=== PATIENT | female | born 1960 | race Caucasian/White ===

== ENCOUNTER 2020-10-22 11:36 | Day surgery (SDC) | payer BC, OTHER ==
--- OUTSIDE RECORDS SUMMARY | 2020-10-15 10:37 | XMSREPORT | Referral Summary ---
:1960 Author Organization [facility] and [facility] s Address [facility] [place] [address] Care Team Providers Name Role Phone LOYDA Aguilera Attributed Provider LOYDA Aguilera Primary Care Provider Reason for Referral Transitions of Care (Routine) Status Reason Specialty Diagnoses / Referred By Referred To Procedures Contact Contact New Request Patient Diagnoses Iron deficiency anemia, unspecified iron deficiency anemia type [facility]ravanthi [facility], [facility] Preference LOYDA [place], [address] [place], [place] [address] [address] [place], [place] Phone: [phone] Phone: Encounter Details Date Type Department Care Team Description 10/13/[address] [facility] Sravanthi Aguilera PA [address] [place] [address] [place] [address] [phone] Allergies Active Allergy Reactions Severity Noted Date Comments Sulfa Drugs Rash 05/14/2012 documented as of this encounter (statuses as of 10/13/2020) Medications Medication Sig Dispensed Refills Start Date End Date Status MULTIPLE VITAMIN PO Take 1 tablet by 0 Active mouth 1 tablet daily ibuprofen Take 200-600 mg by 0 A ctive (ADVIL;MOTRIN-IB) 200 mouth 3 times a mg tablet day as needed for moderate pain omeprazole (PRILOSEC) TAKE ONE CAPSULE 90 capsule 4 01/10/2020 Active 20 mg BY MOUTH EVERY DAY capsuleIndications: IN THE MORNING GERD (gastroesophageal reflux disease) albuterol HFA Inhale 1-2 puffs 1 Inhaler 2 05/19/2020 Active (PROVENTIL,PROAIR,MIKAELA orally every 4 to TOLIN) 108 (90 Base) 6 hours as needed MCG/ACT for shortness of inhalerIndications: breath or cough Bronchitis Shake well before using. fluticasone (FLONASE) [place] 1 spray into 15.8 mL 1 0 Active 50 mcg/spray nasal each nostril 2 sprayIndications: times a day Dysfunction of right eustachian tube Additional Information Patient not taking. Reported on 10/06/2020 9:01 AM busPIRone (BUSPAR) 30 mg TAKE 1 TABLET(30 MG) 90 tablet 1 08/05 Active tabletIndications: Anxiety BY MOUTH EVERY DAY atorvaSTATin (LIPITOR) 10 mg TAKE 1 TABLET(10 MG) 90 tablet 1 09/29/2020 Active tabletIndications: Mixed BY MOUTH EVERY DAY hyperlipidemia hydroCHLOROthiazide 25 mg TAKE 1 TABLET BY 90 tablet 0 021 Active tabletIndications: Essential MOUTH EVERY DAY hypertension venlafaxine (EFFEXOR) 100 mg TAKE 1 TABLET BY 90 tablet 1 09/05 Active tabletIndications: Depression, MOUTH 1 TIME A DAY unspecified depression type, ALONG WITH 75MG FOR A Anxiety TOTAL OF 175MG DAILY venlafaxine (EFFEXOR XR) 75 mg TAKE ONE CAPSULE BY 90 capsule 1 09/29/2020 Active extended release MOUTH 1 TIME A DAY. capsuleIndications: Depression, ALONG WITH 100 MG FOR unspecified depression type, A TOTAL OF 175MG Anxiety DAILY buPROPion (WELLBUTRIN XL) 150 TAKE 1 TABLET BY 90 tablet 1 Active mg tablet (24 hr)Indications: MOUTH DAILY ALONG Anxiety, Depression, WITH 300MG TABLET FOR unspecified depression type TOTAL OF 450MG DAILY buPROPion (WELLBUTRIN XL) 300 TAKE 1 TABLET BY 90 tablet 1 Active mg tablet (24 hr)Indications: MOUTH 1 TIME PER DAY Anxiety, Depression, ALONG WITH 150MG FOR unspecified depression type A TOTAL OF 450MG DAILY potassium chloride (KLOR-CON Take 1 tablet (10 90 tablet 3 02/ 10/2020 Active M10) 10 MEQ CR mEq) by mouth 2 times tabletIndications: Hypokalemia a day For 5 days and then daily documented as of this encounter (statuses as of 10/13/2020) Active Problems Problem Noted Date GERD (gastroesophageal reflux disease) 11/06/2018 Mixed hyperlipidemia 11/06/2018 Tobacco use 11/06/2018 Overweight (BMI 25.0-29.9) 11/06/2018 Chronic left-sided low back pain without sciatica 08/04 HLA B27 (HLA B27 positive) 08/22/2016 Hypertension Depression Anxiety documented as of this encounter (statuses as of 10/13/2020) Immunizations Name Administration Dates Next Due MMR 04/01/2004 TD(adult)adsorbed 04/01/2004 TD,not adsorbed 04/01/2004 TDAP 07/03/2008 Td(adult)preservative free 11/06/2018, 04/01/2004 Tuberculin PPD 03/02/2016 documented as of this encounter Social History Tobacco Use Types Packs/Day Years Used Date Current Every Day Smoker Cigarettes 0.5 30 Smokeless Tobacco: Never Used Alcohol Use Drinks/Week oz/Week Comments No Physical Activity Answer Date Recorded On average, how many days per week do you engage in moderate to 0 days 08/24/2020 strenuous exercise (like walking fast, running, jogging, dancing, swimming, biking, or other activities that cause a light or heavy sweat)? On average, how many minutes do you engage in exercise at th is 0 min 08/24/2020 level? Food Insecurity Answer Date Recorded Within the past 12 months, you worried that your food would Never true 10/06/2020 run out before you got money to buy more. Within the past 12 months, the food you bought just didn't N ever true 10/06/2020 last and you didn't have money to get more. Sex Assigned at Date Recorded Not on file documented as of this encounter Functional Status Functional Status Response Date of Assessment Do you have difficulty with walking, balance, climbing No 11/06/2018 stairs, or had a fall in the last 3 months? documented as of this encounter Plan of Treatment Name Type Priority Associated Diagnoses Order S [facility] CLINIC REFERRAL Referral Routine Iron deficiency anemia, O rdered: 10/13/2020 ENDOSCOPY NON ONE CHART unspecified iron deficiency anemia type documented as of this encounter Visit Diagnoses Diagnosis Gastroesophageal reflux disease, unspeci fied whether esophagitis present - Primary Iron deficiency anemia, unspecified iron deficiency anemia type documented in this encounter
[~2020-10-22 11:36] MED LIST: Midazolam 1 MG/ML 2 ML SDV ONE; Propofol 200 MG/20 ML SDV ONE
[2020-10-22] MEDS ORDERED: Lactated Ringers 1,000 ML IV SCH (12:00)
[2020-10-22] MEDS ORDERED: Sodium Chloride 0.9% 10 ML Syringe FLUSH PRN (12:00)
[2020-10-22] MEDS ORDERED: Propofol 200 MG/20 ML SDV ONE ×2 (12:52→13:05)
[2020-10-22] MEDS ORDERED: Midazolam 1 MG/ML 2 ML SDV ONE (13:05)
[2020-10-22] MEDS ORDERED: Lidocaine 2% 5 ML SDV ONE (13:05)
--- NOTE | 2020-10-22 13:43 | PCM.OPNOTE ---
- General Post-Op/Procedure Note Date of Surgery/Procedure: 10/22/20 Operative Procedure(s): EGD with BX. Colonoscopy with polypectomy Findings: Gastritis Desc polyp Sig tics Pre Op Diagnosis: Fe Def Anemia Post-Op Diagnosis: Same Anesthesia Technique: MAC Primary Surgeon: Ze Cisse Anesthesia Provider: Kaur Landeros EBL in mLs: 0 Complications: None Condition: Good
--- NOTE | 2020-10-22 14:48 | OR ---
Date of Procedure: 10/22/2020 PREOPERATIVE DIAGNOSIS: Iron-deficiency anemia. POSTOPERATIVE DIAGNOSES: 1. Chronic gastritis. 2. Sigmoid diverticulosis. 3. Descending colon polyp. PROCEDURES: 1. EGD with biopsy. 2. Colonoscopy with polypectomy. ANESTHESIA: IV sedation. PROCEDURE IN DETAIL: The patient was brought to the procedure room where she was placed on her left side and IV sedation administered. Anesthetic gargle had been given and the oral bite block placed. Upper endoscope was advanced into the esophagus under direct vision without difficulty. Scope was advanced to the second portion of the duodenum. Duodenum and pylorus were normal. Antrum and body of the stomach have evidence of chronic gastritis with some linear erosions. There was no active bleeding. There was no ulcers present. Retroflexion reveals a normal-appearing fundus. Squamocolumnar junction is regular, but the lower esophageal sphincter is fairly loose. The distal esophageal mucosa looks normal and I did not see any evidence of reflux esophagitis. I did take biopsies from the antrum and body of the stomach for pathology review. Air was removed from the stomach, and the scope withdrawn through the remaining esophagus, which appears normal. Patient tolerated this portion of the procedure well. Next, colonoscopy was performed after digital rectal exam was done, which was normal. Colonoscope was inserted and advanced to the level of the cecum without difficulty. Cecal position was confirmed by identifying the appendiceal lumen and ileocecal valve. Prep was good and surfaces were well visualized. Upon withdrawing the scope, the ascending and transverse colon was normal. In the mid descending colon, there was a 6-mm sessile polyp removed with the hot biopsy forceps and sent for pathology review. Sigmoid colon has multiple large diverticula present. Rectum was normal and retroflexion was normal. Air was removed. The scope withdrawn. Patient tolerated the procedure well and returned to recovery in stable condition. RECOMMENDATION: I will have the patient follow up with LOYDA August, next week for review of pathology report. I suspect she will need an acid medication therapy for her stomach, and if H. pylori is present, this should be treated. If polyp is adenomatous, she should undergo a repeat colonoscopy in 5 years. If the polyp is hyperplastic, she can wait for 10 years until her next colon screening. DADA GOLD MD /[id number]
== END 2020-10-22 14:50 | disposition home or self-care (01) ==
LOC: LL.SDS 11:36
PROVIDERS: ATTEND Surgery
DX: D50.9 Iron deficiency anemia, unspecified (principal); K29.50 Unspecified chronic gastritis without bleeding; K57.30 Diverticulosis of large intestine without perforation or abscess without bleeding; Z01.812 Encounter for preprocedural laboratory examination; Z20.822 Contact with and (suspected) exposure to COVID-19; E87.6 Hypokalemia; R32 Unspecified urinary incontinence; Z79.899 Other long term (current) drug therapy; Z88.2 Allergy status to sulfonamides; I10 Essential (primary) hypertension; E66.3 Overweight; Z68.25 Body mass index [BMI] 25.0-25.9, adult
CPT/HCPCS: 00813; 43239; 45384; 87635; J2250; J2704; J7120; U0002

== ENCOUNTER 2021-01-01 00:15 | Observation (INO) | payer BC ==
[2021-01-01] MEDS ORDERED: Sodium Chloride 0.9% 10 ML Syringe FLUSH PRN ×3 (00:47→02:11)
[2021-01-01] MEDS ORDERED: Famotidine 20 MG/2 ML SDV IVPUSH ONE (00:47)
--- NOTE | 2021-01-01 00:47 | EDM.PDOC ---
ED HPI GENERAL MEDICAL PROBLEM - General Chief Complaint: Cardiovascular Problem Stated Complaint: DIZZY, LIGHTHEADED, HYPERTENSION Time Seen by Provider: 01/01/21 00:35 Source of Information: Reports: Patient, Old Records ([facility] EMR. No paper hospital chart available.) History Limitations: Reports: No Limitations - History of Present Illness INITIAL COMMENTS - FREE TEXT/NARRATIVE: The patient was brought to the emergency room via transport vehicle from [facility] for evaluation of intermittent nonspecific dizziness, possible mild heart flutter, chills, and nausea with symptoms started at about 9 PM on 12/30. She did have similar symptoms at about 7 PM this evening prior to going to work with return symptoms shortly prior to arrival. In addition, the patient had 8/10 nonspecific epigastric discomfort with no radiation and normal bowel movement at about 11 PM this evening. No treatment prior to arrival with symptoms completely resolved at time of my exam. The patient denies any chest pain/pressure, orthostasis, orthopnea, diaphoresis, paresthesias, recent decreased exercise tolerance, or any other anginal-type symptoms. No recent history of other abdominal pain, emesis, diarrhea, melena, gross hematochezia, or any food intolerance, including fatty foods, etc.. She denies any gross hematuria, colic, or the UTI symptoms. The patient also denies any recent fever, cough, wheezing, dyspnea, etc. although temperature not measured. Onset: Sudden Onset Date: 12/30/20 Onset Time: 21:00 - Related Data Allergies Allergy/AdvReac Type Severity Reaction Status Date / Time Sulfa (Sulfonamide Allergy Rash Verified 01/01/21 00:24 Antibiotics) Home Meds: Home Meds Albuterol Sulfate [Albuterol Sulfate HFA] 1 - 2 puff INH Q4HR PRN 10/21/20 [History] Fluticasone Propionate [Flonase] 1 spray NASBOTH BID PRN 10/21/20 [History] Ibuprofen [Advil] 200 - 600 mg PO TID PRN 10/21/20 [History] Multivitamin with Minerals [Multiple Vitamin] 1 tab PO DAILY 10/21/20 [History] Omeprazole 1 cap PO DAILY 10/21/20 [History] Venlafaxine HCl 1 tab PO DAILY 10/21/20 [History] Venlafaxine [Effexor XR] 75 mg PO DAILY 10/21/20 [History] atorvaSTATin [Lipitor] 1 tab PO DAILY 10/21/20 [History] buPROPion HCL [Wellbutrin Xl] 1 tab PO DAILY 10/21/20 [History] buPROPion HCL [Wellbutrin Xl] 1 tab PO DAILY 10/21/20 [History] busPIRone HCl [busPIRone] 1 tab PO DAILY 10/21/20 [History] hydroCHLOROthiazide [Hydrochlorothiazide] 0.5 tab PO DAILY 10/21/20 [History] Potassium Chloride [Klor-Con M10] 10 meq PO DAILY 10/22/20 [History] Past Medical History HEENT History: Reports: Allergic Rhinitis, Cataract, Impaired Vision, Other (See Below). Denies: Glaucoma, Hard of Hearing, Macular Degeneration, Otitis Media, Retinal Detachment Other HEENT History: Patient wears reading glasses. Retinal thinning. Cardiovascular History: Reports: CAD, High Cholesterol, Hypertension. Denies: Afib, Aneurysm, Arrhythmia, Blood Clots/VTE/DVT, Cardiomyopathy, Heart Failure, Heart Murmur, OK, PVD, Syncope Other Cardiovascular History: Coronary artery calcifications by CT scan on 10/20/2020. Respiratory History: Reports: COPD, Intubation, Previous, Other (See Below). Denies: Asthma, Bronchitis, Recurrent, Intubation, Difficult, PE, Pneumonia, Recurrent, Pneumothorax, Sleep Apnea, TB Other Respiratory History: 3 mm benign right middle lobe pulmonary nodule. Gastrointestinal History: Reports: Colon Polyp, Diverticulosis, Gastritis, GERD, Other (See Below). Denies: Celiac Disease, Cholelithiasis, Chronic Constipation, Chronic Diarrhea, Fatty Liver, Fecal Incontinence, GI Bleed, Hepatitis, Inflammatory Bowel Disease, Irritable Bowel Syndrome, Jaundice, Pancreatitis, PUD Other Gastrointestinal History: 6 mm colonic polyp in the mid descending colon with normal pathological report and mild to moderate sigmoid diverticulosis by colonoscopy in 2020 as below. Genitourinary History: Reports: Urinary Incontinence. Denies: Acute Renal Failure, Chronic Renal Insuffiency, Renal Calculus, STD, UTI, Recurrent VETERINARY TOXICOLOGIST History: Reports: . Denies: Dysfunctional Uterine Bleeding, Endometriosis, Fibroids, Spontaneous : 4 Para: 4 LMP (Approximate): Other (See Below) Other VETERINARY TOXICOLOGIST History: Menopause at about age 52. Full term without complications during pregnancies or deliveries. Musculoskeletal History: Reports: Arthritis, Back Pain, Chronic, Osteoarthritis, Other (See Below). Denies: Amputation, Fracture, Gout, RA, SLE Other Musculoskeletal History: Moderate scoliosis. Neurological History: Reports: Cerebral Aneurysms, Other (See Below). Denies: Concussion, CVA, Headaches, Chronic, Head Trauma, Migraines, MS, Neuropathy, Diabetic, Neuropathy, Peripheral, Parkinson's, Seizure, TIA, Vertigo Other Neuro History: Cerebral aneurysms requiring surgeries as below in 2010. Psychiatric History: Reports: Addiction, Anxiety, Depression, Psych Hospitalization(s), Other (See Below). Denies: Abuse, Victim of, ADD, ADHD, Dementia, PTSD, Suicide Attempt, Suicidal Ideation Other Psychiatric History: Alcohol abuse with inpatient treatment and no alcohol use since 06/28/1999. Initial moderate alcohol intake starting at age 20. Endocrine/Metabolic History: Reports: Hypokalemia, Obesity/BMI 30+. Denies: Diabetes, Gestational, Diabetes, Type I, Diabetes, Type II, Diabetes Mellitus, Type 3c, Hypothyroidism, IDDM Hematologic History: Reports: Anemia, Iron Deficiency. Denies: Blood Transfusion(s) Immunologic History: Reports: None. Denies: AIDS, HIV, SLE Oncologic (Cancer) History: Reports: None. Denies: Basal Cell Carcinoma, Breast, Cervix, Colon, Esophageal, Hodgkin's Lymphoma, Leukemia, Lymphoma, Malignant Melanoma, Non-Hodgkin's Lymphoma, Ovarian, Squamous Cell Carcinoma, Uterine Dermatologic History: Reports: None. Denies: Eczema, Psoriasis - Infectious Disease History Infectious Disease History: Reports: Chicken Pox. Denies: C-Difficile, Helicobacter Pylori, Measles, Meningitis, Mononucleosis, MRSA, Mumps, Novel Coronavirus, Pertussis (Whooping Cough), Rheumatic Fever, Rubella, Scarlet Fever, Shingles, TB, VRE - Past Surgical History Head Surgeries/Procedures: Reports: Shunt, Other (See Below) Other Head Surgeries/Procedures: Initial coil/shunt surgery on 12/29/2010 complicated by postoperative infection with core removal and replacement couple weeks thereafter. HEENT Surgical History: Reports: Cataract Surgery, Oral Surgery, Other (See Below). Denies: Adenoidectomy, Eye Surgery, Laser Surgery, LASIK, Myringotomy w Tube(s), Naso-Sinus Surgery, Tonsillectomy Other HEENT Surgeries/Procedures: Bilateral cataract surgery in 2014. Complete teeth extraction with patient having complete dentures uppers and lowers. Cardiovascular Surgical History: Reports: None. Denies: Varicose, Vascular Surgery Respiratory Surgical History: Reports: None. Denies: Thoracentesis GI Surgical History: Reports: Colonoscopy, EGD, Polypectomy, Other (See Below). Denies: Appendectomy, Cholecystectomy, Hernia, Abdominal, Hernia, Inguinal, Hernia Repair/Other Other GI Surgeries/Procedures: EGD and colonoscopy on 10/22/2020 with negative H pylori biopsy evaluation. Possible previous colonoscopy in 2017. Female Surgical History: Reports: Tubal Ligation, Other (See Below). Denies: Breast Biopsy, Section, D&C, Hysterectomy, Salpingo-Oophorectomy Other Female Surgeries/Procedures: Bilateral tubal ligation at age 37. Endocrine Surgical History: Reports: None. Denies: Thyroid Biopsy Neurological Surgical History: Reports: None. Denies: C-Spine, Discectomy, Laminectomy, Lumbar Spine, Sacral Spine, Scoliosis, Spinal Fusion, Thoracic Spine, Vertebroplasty Musculoskeletal Surgical History: Reports: None. Denies: Arthroscopic Procedure, Carpal Tunnel, Ganglion Cyst, Joint Replacement, ORIF, Shoulder Surgery Oncologic Surgical History: Reports: None Dermatological Surgical History: Reports: None - Past Imaging History Past Imaging History: Reports: CAT Scan (CT of the chest on 10/20/2020.), Mammogram (Last on 10/20/2020.) Social & Family History - Family History HEENT: Reports: Glaucoma. Denies: Macular Degeneration, Retinal Detachment, Other (See Below) Other HEENT Family History: Father with glaucoma. Cardiac: Reports: CAD, Hypertension, OK, Other (See Below). Denies: Afib, Aneurysm, Arrhythmia, Blood Clots/VTE/DVT, Bypass, Heart Failure, Heart Murmur, High Cholesterol, Pacemaker, PVD/COD, Stent, Syncope Other Cardiac Family History: Father with fatal OK in his 70s with no procedures performed. Parents with hypertension. Respiratory: Reports: Asthma, Sleep Apnea, Other (See Below). Denies: COPD, PE, Pneumothorax Other Respiratory Family Hisory: Sleep apnea and brothers x2 and sister. Asthma in brother and sister. GI: Reports: None. Denies: Celiac Disease, Cholelithiasis, Colon Polyps, GERD, GI bleed, Inflammatory Bowel Disease, Irritable Bowel Syndrome : Reports: None. Denies: Renal Calculus, Renal Disease/Insufficiency OBGYN: Reports: None. Denies: Endometriosis, Recurrent Spontaneous Musculoskeletal: Reports: Arthritis, Osteoarthritis, Osteoporosis, RA, Other (See Below). Denies: Gout, SLE Other Musculoskeletal Family History: Maternal grandmother with rheumatoid arthritis. Neurological: Reports: Cerebral Aneurysms, Other (See Below). Denies: Alzheimers Disease, CVA, Dementia, Migraines, MS, Parkinson's, Seizure, TIA Other Neurological Family History: Daughter with small cerebral aneurysm. Psychiatric: Reports: Anxiety, Depression, Other (See Below). Denies: Abuse, Victim of, ADD, ADHD, Psych Hospitalization(s), PTSD, Suicide Attempt Other Psychiatric Family History: Daughter with anxiety depression disorder. Endocrine/Metabolic: Reports: Diabetes, type II, Other (See Below). Denies: Diabetes, Type I, Diabetes Mellitus, Type 3c, Hypothyroidism, IDDM Other Endocrine/Metabolic Family History: Mother with IDDM. Brother with AODM. Hematologic: Reports: None. Denies: Anemia, SLE Immunologic: Reports: None. Denies: AIDS, HIV, SLE Dermatologic: Reports: None. Denies: Eczema, Psoriasis Oncologic: Reports: Breast, Other (See Below). Denies: Cervix, Colon, Hodgkin's Lymphoma, Leukemia, Lymphoma, Metastatic, Non-Hodgkin's Lymphoma, Ovarian, Skin, Uterine Other Oncologic Family History: Paternal aunt with fatal breast cancer in her 60s. - Tobacco Use Tobacco Use Status *Q: Current Every Day Tobacco User Tobacco Use Within Last Twelve Months: Cigarettes Years of Tobacco use: 41 Packs/Tins Daily: 0.8 Packs/Tins Daily Comment: Started smoking at age 19 with average use of 0.75-1 pack/day. Used Tobacco, but Quit: No Smoking Cessation Information Provided To Patient: Yes Second Hand Smoke Exposure: Yes Source of Second Hand Smoke Exposure: Sister and [id number]. Second Hand Smoke Education Provided: Yes - Caffeine Use Caffeine Use: Reports: Coffee (3 cups/day), Soda (2 sodas per day). Denies: Energy Drinks, Tea - Alcohol Use Alcohol Use History: Yes Days Per Week of Alcohol Use: 0 Number of Drinks Per Day Comment: Alcohol abuse as above. Alcohol Use in Last Twelve Months: No - Recreational Drug Use Recreational Drug Use: No Drug Use in Last 12 Months: No Recreational Drug Type: Denies: Amphetamines (Speed), Cocaine, Heroin, Inhalants (Glues, Solvents, Aerosols), LSD (Acid), Marijuana/Hashish, Methamphetamine, Morphine, Oxycodone - Living Situation & Occupation Living situation: Reports: (Second marriage in 2001 with 2 children from that marriage. from first with 2 children from that marriage.) Occupation: Employed ([employer]) ED ROS GENERAL - Review of Systems Review Of Systems: Comprehensive ROS is negative, except as noted in HPI. ED EXAM, GENERAL - Physical Exam Exam: See Below Exam Limited By: No Limitations General Appearance: Alert, WD/WN, No Apparent Distress, Anxious (Mild to moderate) Eye Exam: Bilateral Eye: EOMI, Normal Fundi, Normal Inspection (No vertigo or nystagmus), PERRL Ears: Normal External Exam, Normal Canal, Hearing Grossly Normal, Normal TMs Nose: Normal Inspection, Normal Mucosa, No Blood Throat/Mouth: Normal Inspection, Normal Lips, Normal Gums, Normal Oropharynx, Normal Voice, No Airway Compromise. No: Normal Teeth (Completely absent dentition with patient only wearing her upper dentures.), Dysphagia, Perioral Cyanosis Head: Atraumatic, Normocephalic. No: Facial Swelling, Facial Tenderness, Sinus Tenderness Neck: Normal Inspection, Supple, Non-Tender, Full Range of Motion. No: Carotid Bruit, Lymphadenopathy (L), Lymphadenopathy (R), Thyromegaly Respiratory/Chest: No Respiratory Distress, Lungs Clear, Normal Breath Sounds, No Accessory Muscle Use, Chest Non-Tender. No: Pleural Rub, Retractions Cardiovascular: Normal Peripheral Pulses, Regular Rate, Rhythm, No Edema, No Gallop, No JVD, No Murmur, No Rub. No: Gallop/S3, Gallop/S4, Friction Rub Peripheral Pulses: 2+: Radial (L), Radial (R), Dorsalis Pedis (L), Dorsalis Pedis (R) GI/Abdominal: Normal Bowel Sounds, Soft, Non-Tender, No Organomegaly, No Distention, No Abnormal Bruit, No Mass. No: Guarding (Female) Exam: Deferred Rectal (Female) Exam: Deferred Back Exam: Full Range of Motion, Other (Moderate scoliosis). No: CVA Tenderness (L), CVA Tenderness (R), Muscle Spasm, Paraspinal Tenderness, Vertebral Tenderness Extremities: Normal Inspection, Normal Range of Motion, Non-Tender, No Pedal Edema, Normal Capillary Refill. No: Jeanie's Sign Neurological: Alert, Oriented, CN II-XII Intact, Normal Cognition, Normal Gait, Normal Reflexes (Negative Babinski's, finger to nose, and pronator rotation tests. No evidence of facial paresis, tongue deviation, orthostasis, etc.. Excellent reverse thought processes.), No Motor/Sensory Deficits Psychiatric: Anxious (Mild to moderate), Depressed Mood (Borderline) Skin Exam: Warm, Dry, Intact, Normal Color, No Rash. No: Diaphoretic, Wound/Incision Lymphatic: No Adenopathy #1 Interpretation EKG Date: 01/01/21 Time: 00:28 Rhythm: NSR Rate (Beats/Min): 80 [place]: Normal (Neutral) P-Wave: Present QRS: Wide (0.10 seconds representing repolarization changes.) ST-T: Normal (With nonspecific ST changes) QT: Normal NC/PQ Interval: 0.16 seconds with poor R wave progression anterior leads. Comparison: NA - No Prior EKG EKG Interpretation Comments: No acute ischemic changes Course - Vital Signs Last Recorded V/S: Last Vital Signs Temp 36.3 C 01/01/21 01:14 Pulse 84 01/01/21 01:14 Resp 16 01/01/21 01:14 BP 148/84 H 01/01/21 01:14 Pulse Ox 98 01/01/21 01:14 Vital Signs - 24 hr 01/01/21 01/01/21 01/01/21 00:19 00:20 00:30 Temperature [ 36.3 C 36.3 C Temporal] Pulse, 99 100 85 Peripheral [ Apical] Respiratory 15 13 15 Rate Blood Pressure 160/91 H 160/91 H 156/82 H [Right Upper Arm] O2 Sat by Pulse 97 98 95 Oximetry 01/01/21 01/01/21 00:45 01:14 Temperature [ 36.3 C Temporal] Pulse, 91 84 Peripheral [ Apical] Respiratory 15 16 Rate Blood Pressure 150/88 H 148/84 H [Right Upper Arm] O2 Sat by Pulse 95 98 Oximetry - Orders/Labs/Meds Orders: Active Orders 24 hr Category Date Time Status Cardiac Monitoring [RC] . DIRECTED Care 01/01/21 00:48 Active EKG Documentation Completion [RC] ASDIRECTED Care 01/01/21 00:28 Active Oxygen Therapy, ED [RC] PRN Care 01/01/21 00:48 Active Peripheral IV Care [RC] . DIRECTED Care 01/01/21 00:48 Active Pulse Oximetry [RC] CONTINUOUS Care 01/01/21 00:48 Active Up With Assistance [RC] PFP Care 01/01/21 00:48 Active Vital Signs [RC] PFP Care 01/01/21 00:48 Active Nothing per Oral Now Diet [DIET] Diet 01/01/21 Breakfast Active Chest 1V Frontal [CR] Stat Exams 01/01/21 00:48 Ordered CORONAVIRUS COVID-19 PAOLA [MOLEC] Stat Lab 01/01/21 00:51 Ordered Potassium Chloride Riders [KCl in Water 10 MEQ/50 ML] Med 01/01/21 01:33 Ordered 10 meq Premix Bag 1 bag IV ONETIME Sodium Chloride 0.9% [Saline Flush] Med 01/01/21 00:47 Active 10 ml FLUSH ASDIRECTED PRN Isolation [COMM] Routine Oth 01/01/21 00:51 Active Obtain Past Medical Record [OM.PC] Urgent Oth 01/01/21 00:48 Active Peripheral IV Insertion Adult [OM.PC] Stat Oth 01/01/21 00:48 Ordered Resuscitation Status Stat Resus Stat 01/01/21 00:47 Ordered EKG 12 Lead [EK] Stat Ther 01/01/21 00:28 Ordered Medication Orders Potassium Chloride 10 meq/ (Premix) 50 mls @ 50 mls/hr IV ONETIME ONE Stop: 01/01/21 02:32 Sodium Chloride (Sodium Chloride 0.9% 10 Ml Syringe) 10 ml FLUSH ASDIRECTED PRN PRN Reason: Keep Vein Open Last Admin: 01/01/21 00:56 Dose: 10 ml Documented by: [id number] Sodium Chloride (Sodium Chloride 0.9% 10 Ml Syringe) 10 ml FLUSH ASDIRECTED PRN PRN Reason: Keep Vein Open Labs: Laboratory Tests 01/01/21 01/01/21 01/01/21 Range/Units 00:45 00:45 00:45 WBC 11.9 H (4.0-10.2) K/uL RBC 4.14 (3.77-5.09) M/uL Hgb 12.7 (11.7-15.5) g/dL Hct 36.9 (34.0-46.0) % MCV 89.1 (84.0-98.0) fL MCH 30.7 (28.2-33.3) pg MCHC 34.4 (31.7-36.0) g/dL RDW 12.9 (11.2-14.1) % Plt Count 396 H (150-350) K/uL Neut % (Auto) 74.8 (45.0-80.0) % Lymph % (Auto) 15.9 (10.0-50.0) % Ray % (Auto) 7.5 (2.0-14.0) % Eos % (Auto) 1.2 (0.0-5.0) % Baso % (Auto) 0.6 (0.0-2.0) % Neut # (Auto) 8.86 H (1.40-7.00) K/uL Lymph # (Auto) 1.89 (0.50-3.50) K/uL Ray # (Auto) 0.89 (0.00-1.00) K/uL Eos # (Auto) 0.14 (0.00-0.50) K/uL Baso # (Auto) 0.07 (0.00-0.20) K/uL PT 9.8 (9.5-12.0) SEC INR 1.0 APTT 24.7 (24.5-32.8) SEC D-Dimer, Quantitative 810 H (0-400) ng/mL Sodium (136-145) mmol/L Potassium (3.5-5.1) mmol/L Chloride (98-107) mmol/L Carbon Dioxide (21.0-32.0) mmol/L BUN (7-18) mg/dL Creatinine (0.51-1.17) mg/dL Est Cr Clr Drug Dosing mL/min Estimated GFR (MDRD) mL/min Glucose (70-99) mg/dL Lactic Acid (0.4-2.0) mmol/L Uric Acid (2.6-7.2) mg/dL Calcium (8.5-10.1) mg/dL Magnesium (1.8-2.4) mg/dL Total Bilirubin (0.2-1.0) mg/dL AST (15-37) U/L ALT (12-78) U/L Alkaline Phosphatase (46-116) IU/L Creatine Kinase (26-308) U/L Creatine Kinase Index (0.0-2.5) % CK-MB (CK-2) (0.00-3.60) ng/mL Troponin I (0.000-0.056) ng/mL NT-Pro-B Natriuret Pep (0-125) pg/mL Total Protein (6.4-8.2) g/dL Albumin (3.4-5.0) g/dL TSH, Ultra Sensitive (0.358-3.740) mIU/mL 01/01/21 01/01/21 Range/Units 00:45 00:45 WBC (4.0-10.2) K/uL RBC (3.77-5.09) M/uL Hgb (11.7-15.5) g/dL Hct (34.0-46.0) % MCV (84.0-98.0) fL MCH (28.2-33.3) pg MCHC (31.7-36.0) g/dL RDW (11.2-14.1) % Plt Count (150-350) K/uL Neut % (Auto) (45.0-80.0) % Lymph % (Auto) (10.0-50.0) % Ray % (Auto) (2.0-14.0) % Eos % (Auto) (0.0-5.0) % Baso % (Auto) (0.0-2.0) % Neut # (Auto) (1.40-7.00) K/uL Lymph # (Auto) (0.50-3.50) K/uL Ray # (Auto) (0.00-1.00) K/uL Eos # (Auto) (0.00-0.50) K/uL Baso # (Auto) (0.00-0.20) K/uL PT (9.5-12.0) SEC INR APTT (24.5-32.8) SEC D-Dimer, Quantitative (0-400) ng/mL Sodium 141 (136-145) mmol/L Potassium 2.4 L* (3.5-5.1) mmol/L Chloride 102 (98-107) mmol/L Carbon Dioxide 27.0 (21.0-32.0) mmol/L BUN 21 H (7-18) mg/dL Creatinine 0.86 (0.51-1.17) mg/dL Est Cr Clr Drug Dosing 61.57 mL/min Estimated GFR (MDRD) > 60 mL/min Glucose 110 H (70-99) mg/dL Lactic Acid 0.7 (0.4-2.0) mmol/L Uric Acid 7.3 H (2.6-7.2) mg/dL Calcium 10.1 (8.5-10.1) mg/dL Magnesium 1.6 L (1.8-2.4) mg/dL Total Bilirubin 0.4 (0.2-1.0) mg/dL AST 29 (15-37) U/L ALT 33 (12-78) U/L Alkaline Phosphatase 94 (46-116) IU/L Creatine Kinase 474 H (26-308) U/L Creatine Kinase Index 1.5 (0.0-2.5) % CK-MB (CK-2) 7.00 H* (0.00-3.60) ng/mL Troponin I 0.000 (0.000-0.056) ng/mL NT-Pro-B Natriuret Pep 108 (0-125) pg/mL Total Protein 7.5 (6.4-8.2) g/dL Albumin 4.1 (3.4-5.0) g/dL TSH, Ultra Sensitive 1.069 (0.358-3.740) mIU/mL Microbiology 01/01/21 01:05 Influenza Type A Antigen Screen - Final Nasal, Unspecified NEGATIVE INFLUENZA A VIRUS AG REFERENCE RANGE: NEGATIVE Influenza Type B Antigen Screen - Final NEGATIVE INFLUENZA B VIRUS AG REFERENCE RANGE: NEGATIVE COVID-19 rapid test collected with results pending Meds: Medications Generic Name Dose Route Start Last Admin Trade Name Freq PRN Reason Stop Dose Admin Potassium Chloride 10 meq/ 50 mls @ 50 mls/hr 01/01/21 01:33 Premix IV 01/01/21 02:32 ONETIME ONE Sodium Chloride 10 ml 01/01/21 00:47 01/01/21 00:56 Sodium Chloride 0.9% 10 Ml Syringe FLUSH 10 ml ASDIRECTED PRN Administration Keep Vein Open Sodium Chloride 10 ml 01/01/21 01:46 Sodium Chloride 0.9% 10 Ml Syringe FLUSH ASDIRECTED PRN Keep Vein Open Discontinued Medications Generic Name Dose Route Start Last Admin Trade Name Freq PRN Reason Stop Dose Admin Famotidine 40 mg 01/01/21 00:47 01/01/21 00:56 Famotidine 20 Mg/2 Ml Sdv IVPUSH 01/01/21 00:48 40 mg ONETIME ONE Administration - Radiology Interpretation Free Text/Narrative:: monitor tech shows normal sinus rhythm in the 70s 80s with no ectopy or arrhythmia Chest x-ray, portable, shows mild COPD changes with additional mild prominence of the proximal aortic arch with no pulmonary infiltrates, pneumothorax, CHF, cardiomegaly, etc. Moderate scoliosis noted. Departure - Departure Time of Disposition: 01:50 Disposition: Refer to Observation Condition: Good Clinical Impression: Hypokalemia, Hypomagnesemia, Hyperuricemia, Peptic reflux disease, Elevated CK- MB level, D-dimer, elevated, Cerebral aneurysm, Mixed anxiety and depressive disorder, Tobacco abuse counseling Hypertension Qualifiers: Hypertension type: essential hypertension Qualified Code(s): I10 - Essential (primary) hypertension Sepsis Event Note (ED) - Evaluation Sepsis Screening Result: No Definite Risk - Focused Exam Vital Signs: Vital Signs Temp Pulse Resp BP Pulse Ox 01/01/21 01:14 36.3 C 84 16 148/84 H 98 01/01/21 00:45 91 15 150/88 H 95 01/01/21 00:30 85 15 156/82 H 95 01/01/21 00:20 36.3 C 100 13 160/91 H 98 01/01/21 00:19 36.3 C 99 15 160/91 H 97 - Problem List & Annotations (1) Elevated CK-MB level SNOMED Code(s): 953089689 Code(s): R74.8 - ABNORMAL LEVELS OF OTHER SERUM ENZYMES Status: Acute Priority: High Current Visit: Yes Onset Date: 01/01/21 Annotation/Comment:: No true chest pain or anginal complaints. Secondary to history of coronary artery calcification initiate standard rule out OK orders. Note normal cardiac index and troponin I with no EKG changes. No evidence of rhabdomyolysis, however aggressive IV hydration with lactated Ringer's, including initial IV bolus of 1 L with subsequent fluids after completion of magnesium sulfate infusion. (2) D-dimer, elevated SNOMED Code(s): 263927919 Code(s): R79.89 - OTHER SPECIFIED ABNORMAL FINDINGS OF BLOOD CHEMISTRY Status: Acute Priority: High Current Visit: Yes Onset Date: 01/01/21 Annotation/Comment:: No evidence of DVT or PE. Consider venous Doppler studies of the lower extremities, which are not available at this time. CTA of the chest in the a.m. Consider anticoagulation once CT scan of the head results are obtained. (3) Cerebral aneurysm SNOMED Code(s): 682901495 Code(s): I67.1 - CEREBRAL ANEURYSM, NONRUPTURED Status: Chronic Priority: Medium Current Visit: Yes Annotation/Comment:: History of cerebral aneurysm and coiling as above. No neurological deficits, headache, etc.. Secondary to nonspecific findings including intermittent dizziness, nausea, etc. CT of the head to be conducted in the a.m. (4) Hyperuricemia SNOMED Code(s): 67798727 Code(s): E79.0 - HYPERURICEMIA W/O SIGNS OF INFLAM ARTHRIT AND TOPHACEOUS DIS Status: Acute Priority: Medium Current Visit: Yes Onset Date: 01/01/21 Annotation/Comment:: Newly diagnosed. Her arthritis is stable with no recent history of gout attacks, etc. (5) Hypokalemia SNOMED Code(s): 78921807 Code(s): E87.6 - HYPOKALEMIA Status: Chronic Priority: High Current Visit: Yes Annotation/Comment:: Patient denies noncompliance with her potassium supplement. Aggressive oral and IV potassium chloride supplementation. Continue telemetry. (6) Hypomagnesemia SNOMED Code(s): 239450979 Code(s): E83.42 - HYPOMAGNESEMIA Status: Acute Priority: Medium Current Visit: Yes Onset Date: 01/01/21 Annotation/Comment:: IV magnesium sulfate to be infused after 1 L IV bolus of lactated Ringer's as above. (7) Peptic reflux disease SNOMED Code(s): 575658190 Code(s): K21.9 - GASTRO-ESOPHAGEAL REFLUX DISEASE WITHOUT ESOPHAGITIS Status: Chronic Priority: Medium Current Visit: Yes Annotation/Comment:: Mild exacerbation today. Note recent EGD and colonoscopy in October 2020 as above. No evidence of acute GI bleed. High-dose IV Pepcid given as GI pro phylaxis. (8) Hypertension SNOMED Code(s): 05046235 Code(s): I10 - ESSENTIAL (PRIMARY) HYPERTENSION Status: Chronic Priority: Medium Current Visit: Yes Annotation/Comment:: Blood pressure somewhat elevated in the emergency room, although improved prior to admission. Continue to observe closely. Qualifiers: Hypertension type: essential hypertension Qualified Code(s): I10 - Essential (primary) hypertension (9) Mixed anxiety and depressive disorder SNOMED Code(s): 039731527 Code(s): F41.8 - OTHER SPECIFIED ANXIETY DISORDERS Status: Chronic Priority: Medium Current Visit: Yes Annotation/Comment:: Moderate control by today's exam. Continue to observe closely. (10) Tobacco abuse counseling SNOMED Code(s): 329405194, 729710758, [id number] Code(s): Z71.6 - TOBACCO ABUSE COUNSELING Status: Chronic Priority: Medium Current Visit: Yes Annotation/Comment:: Tobacco cessation strongly encouraged with information to be provided at discharge. - Problem List Review Problem List Initiated/Reviewed/Updated: Yes - My Orders Last 24 Hours: My Active Orders 01/01/21 00:28 EKG Documentation Completion [RC] ASDIRECTED EKG 12 Lead [EK] Stat 01/01/21 00:47 Sodium Chloride 0.9% [Saline Flush] 10 ml FLUSH ASDIRECTED PRN Resuscitation Status Stat 01/01/21 00:48 Cardiac Monitoring [RC] . DIRECTED Oxygen Therapy, ED [RC] PRN Peripheral IV Care [RC] . DIRECTED Pulse Oximetry [RC] CONTINUOUS Up With Assistance [RC] PFP Vital Signs [RC] PFP Chest 1V Frontal [CR] Stat Obtain Past Medical Record [OM.PC] Urgent Peripheral IV Insertion Adult [OM.PC] Stat 01/01/21 00:51 CORONAVIRUS COVID-19 PAOLA [MOLEC] Stat Isolation [COMM] Routine 01/01/21 01:33 Potassium Chloride Riders [KCl in Water 10 MEQ/50 ML] 10 meq Premix Bag 1 bag IV ONETIME 01/01/21 Breakfast Nothing per Oral Now Diet [DIET] - Assessment/Plan Admission H&P: Please use this note as an admission H&P Last 24 Hours: My Active Orders 01/01/21 00:28 EKG Documentation Completion [RC] ASDIRECTED EKG 12 Lead [EK] Stat 01/01/21 00:47 Sodium Chloride 0.9% [Saline Flush] 10 ml FLUSH ASDIRECTED PRN Resuscitation Status Stat 01/01/21 00:48 Cardiac Monitoring [RC] . DIRECTED Oxygen Therapy, ED [RC] PRN Peripheral IV Care [RC] . DIRECTED Pulse Oximetry [RC] CONTINUOUS Up With Assistance [RC] PFP Vital Signs [RC] PFP Chest 1V Frontal [CR] Stat Obtain Past Medical Record [OM.PC] Urgent Peripheral IV Insertion Adult [OM.PC] Stat 01/01/21 00:51 CORONAVIRUS COVID-19 PAOLA [MOLEC] Stat Isolation [COMM] Routine 01/01/21 01:33 Potassium Chloride Riders [KCl in Water 10 MEQ/50 ML] 10 meq Premix Bag 1 bag IV ONETIME 01/01/21 Breakfast Nothing per Oral Now Diet [DIET] Assessment:: As above Plan: As above. Extensive precautions were given to the patient, who is in agreement with the treatment plan. The patient's condition is stable enough for observation status and general supervision.
[2021-01-01 01:24] LABS: PTT,PARTIAL THROMBOPLSTIN TIME 24.7 SEC (24.5-32.8)
[2021-01-01 01:27] LABS: CHLORIDE,CL 102 mmol/L (98-107); SODIUM,NA 141 mmol/L (136-145)
[2021-01-01] MEDS ORDERED: Potassium Chloride Riders 10 MEQ in Premix Bag 1 BAG IV ONE (01:33)
[2021-01-01] MEDS ORDERED: Lactated Ringers 1,000 ML IV ONE (02:09)
[2021-01-01] MEDS ORDERED: Magnesium Oxide 400 MG Tab PO ONE (02:09)
[2021-01-01] MEDS ORDERED: Temazepam 15 MG Cap PO PRN (02:11)
[2021-01-01] MEDS ORDERED: Acetaminophen 325 MG Tab PO PRN (02:11)
[2021-01-01] MEDS ORDERED: Sodium Chloride 0.9% 1,000 ML IV SCH (02:30)
[2021-01-01] MEDS ORDERED: Magnesium Sulfate/Water 4 GM/100 ML BAG IV ONE (03:00)
[2021-01-01] MEDS: Potassium Chloride Riders 10 MEQ in Premix Bag 1 BAG IV SCH ×6 (03:17→08:20)
[2021-01-01] MEDS: Lactated Ringers 1,000 ML IV SCH ×2 (07:14→20:03)
[2021-01-01] MEDS ORDERED: Non-Formulary Medication 1 Each (Bupropion Hcl [Wellbutrin Xl] 300 MG Tab.Er.24h) PO SCH (08:00)
[2021-01-01] MEDS ORDERED: atorvaSTATin 10 MG Tab PO SCH (08:00)
[2021-01-01] MEDS ORDERED: Iopamidol 755 Mg/ML 100 ML Bottle IVPUSH STA (08:07)
[2021-01-01] MEDS: buPROPion 150 MG Tab.ER PO SCH (08:12)
[2021-01-01] MEDS: busPIRone 15 MG Tab PO SCH (08:13)
[2021-01-01] MEDS: Venlafaxine 75 MG Cap.ER PO SCH (08:13)
[2021-01-01] MEDS: Potassium Chloride 20 MEQ Tab.ER PO SCH ×3 (08:13→17:15)
[2021-01-01 08:18] LABS: HEMOGLOBIN A1C 5.9 % (4.3-5.7)
[2021-01-01] MEDS ORDERED: Iopamidol 755 Mg/ML 100 ML Bottle ONE (08:21)
[2021-01-01] MEDS: amLODIPine 5 MG Tab PO SCH (09:37)
[2021-01-01 12:23] LABS: CHLORIDE,CL 106 mmol/L (98-107); SODIUM,NA 142 mmol/L (136-145)
[2021-01-01] MEDS: Nicotine 21 MG/24 Hr Patch TRDERM SCH (12:48)
[2021-01-01] MEDS ORDERED: Loperamide 2 MG Tab PO ONE (13:20)
[2021-01-01] MEDS ORDERED: Loperamide 2 MG Tab PO PRN (13:21)
[2021-01-02] MEDS: Lactated Ringers 1,000 ML IV SCH (06:16)
[2021-01-02] MEDS ORDERED: Remove Patch NICOTINE PATCH TRDERM SCH (08:00)
[2021-01-02 08:13] LABS: CHLORIDE,CL 111 mmol/L (98-107); SODIUM,NA 146 mmol/L (136-145)
[2021-01-02] MEDS: buPROPion 150 MG Tab.ER PO SCH (08:16)
[2021-01-02] MEDS: busPIRone 15 MG Tab PO SCH (08:17)
[2021-01-02] MEDS: Potassium Chloride 20 MEQ Tab.ER PO SCH (08:17)
[2021-01-02] MEDS: amLODIPine 5 MG Tab PO SCH (08:17)
[2021-01-02] MEDS: Venlafaxine 75 MG Cap.ER PO SCH (08:17)
[2021-01-02] MEDS: Nicotine 21 MG/24 Hr Patch TRDERM SCH (08:18)
--- NOTE | 2021-01-02 09:00 | PCM.DCSUM1 ---
Discharge Summary - Hospital Course HPI Initial Comments: See emergency room note/admission H&P Brief History: See emergency room note/admission H&P Diagnosis: Stroke: No Modified [place] Scale: No Symptoms at All Modified [place] Scale Score: 0 - Discharge Data Discharge Date: 01/02/21 Discharge Disposition: Home, Self-Care 01 Condition: Good - Referral to Home Health Primary Care Physician: PCP None - Discharge Diagnosis/Problem(s) (1) Elevated CK-MB level SNOMED Code(s): 296154303 ICD Code: R74.8 - ABNORMAL LEVELS OF OTHER SERUM ENZYMES Status: Acute Priority: High Current Visit: Yes Onset Date: 01/01/21 Problem Details: No true chest pain or anginal complaints with negative work-up for acute RI. Secondary to cardiac risk factors and history prior to admission patient may benefit from a Cardiolite stress test in this facility, although her blood pressure should be under better control prior to this procedure. [place]cat work excuse was provided, including work, fall, and injury precautions secondary to her history of tachycardia. Further cardiology referral and/or work-up depending on her clinical course. Note previous history and incidental findings of of coronary artery calcification by previous CT scans. No evidence of rhabdomyolysis, however aggressive IV hydration with lactated Ringer's during this hospitalization, including initial IV bolus of 1 L LR, with normal CK at time of discharge. Magnesium sulfate infusion and additional magnesium oxide orally were required during this hospitalization as below. Note that the patient was started on high-dose coenzyme Q 10 during this hospitalization, with this to be continued at discharge as per discharge instructions. Lipitor was held/discontinued for now with further dosage adjustment by her regular provider depending on her clinical course. (2) Hypokalemia SNOMED Code(s): 25467804 ICD Code: E87.6 - HYPOKALEMIA Status: Chronic Priority: High Current Visit: Yes Problem Details: The patient now states that she has had loose stools and borderline diarrhea for the last week, which is an additional likely etiology of her significant hypokalemia on admission. Imodium was initiated yesterday with resolved diarrhea at this time. Persistent mild hypokalemia despite aggressive treatment during her observation status, including aggressive oral and IV potassium chloride supplementation. Her previous potassium chloride supplement will be increased at this time with close follow-up by regular provider. Telemetry remained normal throughout this hospitalization. Consider stool cultures at follow-up, if diarrhea persists. No direct evidence of C. difficile with no recent antibiotic therapy. Note magnesium supplement may contribute to patient's loose stools at discharge, although her loose stools were present prior to initiation of this therapy. (3) D-dimer, elevated SNOMED Code(s): 325369137 ICD Code: R79.89 - OTHER SPECIFIED ABNORMAL FINDINGS OF BLOOD CHEMISTRY Status: Acute Priority: High Current Visit: Yes Onset Date: 01/01/21 Problem Details: No evidence of DVT or PE. Consider venous Doppler studies of the lower extremities, which are not available at this time. CTA of the chest on 01/01/2021 were negative for PE. Close follow-up by regular provider with consideration of venous Doppler studies of the lower extremities on an outpatient basis. (4) Cerebral aneurysm SNOMED Code(s): 008643952 ICD Code: I67.1 - CEREBRAL ANEURYSM, NONRUPTURED Status: Chronic Priority: Medium Current Visit: Yes Problem Details: History of cerebral aneurysm and coiling as above. No neurological deficits, headache, etc.. Secondary to nonspecific findings including intermittent dizziness, nausea, etc. CT of the head on 01/01/2021 showed no definite acute changes with persistent mild hydrocephalitis, which is apparently stable based on previous CT of the head report from [facility] in [place], which the patient showed me on her cell phone. Medical records are to be released to that facility with continued close follow-up with her neurologist, etc. (5) Hyperuricemia SNOMED Code(s): 38236027 ICD Code: E79.0 - HYPERURICEMIA W/O SIGNS OF INFLAM ARTHRIT AND TOPHACEOUS DIS Status: Acute Priority: Medium Current Visit: Yes Onset Date: 01/01/21 Problem Details: Newly diagnosed. Her arthritis is stable with no recent history of gout attacks, etc. (6) Hypomagnesemia SNOMED Code(s): 510966963 ICD Code: E83.42 - HYPOMAGNESEMIA Status: Acute Priority: Medium Current Visit: Yes Onset Date: 01/01/21 Problem Details: Magnesium level continues to be low at time of discharge despite oral potassium oxide supplementation and IV magnesium sulfate of 4 g after 1 L IV bolus of lactated Ringer's on admission. Magnesium oxide 800 mg given prior to discharge with the patient wishing to go home at this time. Continue oral magnesium oxide on an outpatient basis with close follow-up by regular provider. (7) Peptic reflux disease SNOMED Code(s): 974944980 ICD Code: K21.9 - GASTRO-ESOPHAGEAL REFLUX DISEASE WITHOUT ESOPHAGITIS Status: Chronic Priority: Medium Current Visit: Yes Problem Details: Mild exacerbation prior to admission, however under good control during her observation status. Note recent EGD and colonoscopy in October 2020 as per emergency room note. No evidence of acute GI bleed. High-dose IV Pepcid given as GI prophylaxis prior to admission. (8) Hypertension SNOMED Code(s): 43244933 ICD Code: I10 - ESSENTIAL (PRIMARY) HYPERTENSION Status: Chronic Priority: Medium Current Visit: Yes Problem Details: Blood pressures jean nue to be under poor control during this entire hospitalization despite initiation of Norvasc. Medication adjustments at time of discharge with close follow-up by regular provider. Qualifiers: Hypertension type: essential hypertension Qualified Code(s): I10 - Essential (primary) hypertension (9) Mixed anxiety and depressive disorder SNOMED Code(s): 405180664 ICD Code: F41.8 - OTHER SPECIFIED ANXIETY DISORDERS Status: Chronic Priority: Medium Current Visit: Yes Problem Details: Moderate control by initial exam in the emergency room, however improved prior to discharge. Continue to observe closely by her regular provider with no medication changes for now. (10) Tobacco abuse counseling SNOMED Code(s): 699494067, 394996636, 580969797 ICD Code: Z71.6 - TOBACCO ABUSE COUNSELING Status: Chronic Priority: Medium Current Visit: Yes Problem Details: Tobacco cessation strongly encouraged with information to be provided at discharge. (11) Hypocalcemia SNOMED Code(s): 3582669 ICD Code: E83.51 - HYPOCALCEMIA Status: Acute Priority: Medium Current Visit: Yes Onset Date: 01/02/21 Problem Details: Mildly decreased calcium level on 01/02, however normal on admission. Observe for now. (12) Anemia SNOMED Code(s): 098882250 ICD Code: D64.9 - ANEMIA, UNSPECIFIED Status: Acute Priority: Medium Current Visit: Yes Onset Date: 01/02/21 Problem Details: Mild anemia likely secondary to rehydration effect. Further work-up on an outpatient basis as per discharge instructions. Qualifiers: Anemia type: other cause Other causes of anemia: other cause, not classified Qualified Code(s): D64.89 - Other specified anemias (13) COPD (chronic obstructive pulmonary disease) SNOMED Code(s): 52972323 ICD Code: J44.9 - CHRONIC OBSTRUCTIVE PULMONARY DISEASE, UNSPECIFIED Status: Acute Priority: Medium Current Visit: Yes Onset Date: ~01/01/21 Problem Details: Borderline COPD by chest x-ray with no current medical therapy. Tobacco cessation as above. Consider PFTs by regular provider depending on her clinical course. Qualifiers: COPD type: emphysema Emphysema type: panlobular Qualified Code(s): J43.1 - Panlobular emphysema - Patient Summary/Data Operative Procedure(s) Performed: None Complications: None Consults: None Labs Pending at D/C: None Recommended Follow-up Testing/Procedures: As per discharge instructions Planned Operative Procedure(s) after DC: None Hospital Course: The patient was placed in observation status with aggressive IV hydration, IV and oral potassium and magnesium supplementation, and negative work-up for acute RI as above. Note medication adjustments for her hypertension, which continues to be under moderate control. Close follow-up by regular provider. Further cardiac work-up on an outpatient basis as per instructions from her regular provider. - Patient Instructions Diet: Heart Healthy Diet Diet, Other: Diverticulosis Activity: No Strenuous Activities Activity, Other: 50% maximum exercise restriction with fall and injury precautions Driving: May Drive Today Showering/Bathing: May Shower Notify Provider of: Fever, Increased Pain, Nausea and/or Vomiting Other/Special Instructions: 1. Followup with your regular provider in 6 days as directed with recommended repeat CBC, comprehensive metabolic panel, CK, CK-MB, troponin I, D-dimer, magnesium level, TIBC panel, ferritin level, and vitamin B12 level. Bring these discharge instructions with you to that visit. 2. Sign release of medical records from this hospitalization both to [facility] in [place] and also your regular provider. 3. Work excuse- See Form. 4. Note multiple medication changes during this hospitalization, which should be thoroughly discussed with our nurse prior to discharge and also discussed with your regular provider at follow-up. 5. Consider stool specimens for ova and parasites and culture and sensitivity at follow-up, if significant diarrhea persists. 6. Consider scheduling Cardiolite stress test in this facility once your blood pressures are under better control as discussed. 7. Stop all tobacco use SMILEY as directed/per provided information and consider contacting [employer], etc.. 8. Close follow-up of your blood pressures both by your regular provider and the [facility] nurse with records to be brought to each follow- up visit. 9. Immediately after this visit verify that your cellular telephone's voicemail has been activated and is empty. Also verify that your home telephone's answering machine is operating properly and has space to receive messages. Note that it is sometimes necessary for us to be able to contact you at a later date to discuss your medical care. 10. Please remember that we are ALWAYS here for you and want to answer any questions you may have. Feel free to call the hospital any time and we call you back SMILEY. 11. Tylenol 650 mg by mouth every 4 hours and/or OTC ibuprofen 2-3 tabs by mouth every 6 hours with food as directed./needed. You may stagger these medications for 48-72 hours only, which essentially means that you are receiving a pain medication about every 2 hours. 12. Hold your Lipitor for now secondary to your muscle enzyme/CK elevation with close follow-up by regular provider as above and continuation of your Coenzyme Q10. Your regular provider may restart your Lipitor at a lower dose at follow-up depending on those blood work results. 13. Consider venous Doppler studies of the legs bilaterally in this facility, if your D-dimer remains elevated at the above follow-up visit. Note negative CTA of the chest with no evidence of lung clot at this time. - Discharge Plan *PRESCRIPTION DRUG MONITORING PROGRAM REVIEWED*: Not Applicable *COPY OF PRESCRIPTION DRUG MONITORING REPORT IN PATIENT PERFECTO: Not Applicable Prescriptions/Med Rec: Ubidecarenone [Coenzyme Q10] 100 mg PO BID #60 cap lisinopriL [Lisinopril] 10 mg PO QPM #14 tablet Magnesium Oxide 400 mg PO BID #30 tab Home Medications: Home Meds Albuterol Sulfate [Albuterol Sulfate HFA] 1 - 2 puff INH Q4HR PRN 10/21/20 [History] Fluticasone Propionate [Flonase] 1 spray NASBOTH BID PRN 10/21/20 [History] Multivitamin with Minerals [Multiple Vitamin] 1 tab PO DAILY 10/21/20 [History] Omeprazole 1 cap PO DAILY 10/21/20 [History] Venlafaxine HCl 1 tab PO DAILY 10/21/20 [History] Venlafaxine [Effexor XR] 75 mg PO DAILY 10/21/20 [History] buPROPion HCL [Wellbutrin Xl] 1 tab PO DAILY 10/21/20 [History] buPROPion HCL [Wellbutrin Xl] 1 tab PO DAILY 10/21/20 [History] busPIRone HCl [busPIRone] 1 tab PO DAILY 10/21/20 [History] Potassium Chloride [Klor-Con M10] 10 meq PO DAILY 10/22/20 [History] Magnesium Oxide 400 mg PO BID #30 tab 01/02/21 [Rx] Ubidecarenone [Coenzyme Q10] 100 mg PO BID #60 cap 01/02/21 [Rx] amLODIPine [Norvasc] 5 mg PO DAILY tablet 01/02/21 [Rx] lisinopriL [Lisinopril] 10 mg PO QPM #14 tablet 01/02/21 [Rx] Oxygen Therapy Mode: Room Air Patient Handouts: Steps to Quit Smoking, [id number], Health Risks of Smoking, Hypomagnesemia, Hypertension, Adult, [id number], Lisinopril tablets, Amlodipine Oral Tablets Forms: ED Department Discharge Referrals: PCP,None [Primary Care Provider] - - Discharge Summary/Plan Comment DC Time >30 min.: Yes (Coordination of care ) Discharge Summary/Plan Comment: As above. Extensive precautions were given to the patient, who is in agreement with the treatment plan. See Patient Instructions for further treatment and plan. - General Info Date of Service: 01/02/21 Admission Dx/Problem (Free Text: 1. CK elevation 2. Hypokalemia 3. D-dimer elevation Functional Status: Reports: Pain Controlled, Tolerating Diet, Ambulating, Urinating. Denies: New Symptoms, Incentive Spirometry Numeric/FACES Score: 0 - Review of Systems General: Reports: No Symptoms. Denies: Fever, Weakness, Fatigue, Malaise, Chills, Night Sweats, Appetite HEENT: Reports: Glasses. Denies: Dysphasia, Ear Pain, Eye Pain, Headaches, Post Nasal Drip, Sinus Congestion, Sore Throat, Rhinitis, Visual Changes Pulmonary: Reports: No Symptoms. Denies: Shortness of Breath, Pleuritic Chest Pain, Cough, Sputum, Hemoptysis, Wheezing Cardiovascular: Reports: No Symptoms. Denies: Chest Pain, Palpitations, Dyspnea on Exertion, Orthopnea, PND, Edema, Lightheadedness Gastrointestinal: Reports: No Symptoms. Denies: Abdominal Pain, Constipation, D ecreased Appetite, Diarrhea (Resolved with normal bowel movement earlier this morning), Difficulty Swallowing, Flatus, Hematochezia, Melena, Nausea, Vomiting Genitourinary: Reports: No Symptoms. Denies: Dysuria, Frequency, Burning, Pain, Urgency, Incontinence, Hematuria, Retention, Flank Pain Musculoskeletal: Reports: No Symptoms. Denies: Neck Pain, Shoulder Pain, Arm Pain, Back Pain, Leg Pain Skin: Reports: No Symptoms. Denies: Diaphoresis, Bruising Neurological: Reports: No Symptoms. Denies: Confusion, Dizziness, Numbness, Paresthesia, Tingling, Difficulty Walking, Weakness Psychiatric: Reports: No Symptoms. Denies: Confusion, Depression, Anxiety, Agitation, Cravings, Hallucinations - Patient Data Vitals - Most Recent: Last Vital Signs Temp 36.6 C 01/02/21 07:00 Pulse 72 01/02/21 08:15 Resp 20 01/02/21 07:00 BP 160/86 H 01/02/21 08:17 Pulse Ox 96 01/02/21 07:00 Vital Signs - 24 hr 01/01/21 01/01/21 01/01/21 11:45 16:00 20:00 Temperature [ 36.7 C 36.8 C 36.8 C Oral] Pulse, 76 80 Peripheral [ Apical] Pulse, 79 Peripheral [ Right Pulse Oximetry] Respiratory 18 20 18 Rate Blood Pressure Blood Pressure 176/88 H 169/86 H 159/83 H [Left Upper Arm ] O2 Sat by Pulse 95 100 94 L Oximetry 01/02/21 01/02/21 01/02/21 00:00 03:45 07:00 Temperature [ 36.7 C 36.6 C 36.6 C Oral] Pulse, Peripheral [ Apical] Pulse, 70 72 74 Peripheral [ Right Pulse Oximetry] Respiratory 16 14 20 Rate Blood Pressure Blood Pressure 154/83 H 134/78 186/92 H [Left Upper Arm ] O2 Sat by Pulse 90 L 94 L 96 Oximetry 01/02/21 01/02/21 08:15 08:17 Temperature [ Oral] Pulse, Peripheral [ Apical] Pulse, 72 Peripheral [ Right Pulse Oximetry] Respiratory Rate Blood Pressure 160/86 H Blood Pressure 160/86 H [Left Upper Arm ] O2 Sat by Pulse Oximetry Weight - Most Recent: 64.093 kg I&O - Last 24 hours: Intake & Output 01/01/21 01/02/21 01/02/21 22:59 06:59 14:59 Intake Total 1160 1050 Output Total 1700 Balance -540 1050 Imaging Impressions - Last 24 hrs: monitor and storage bin tender shows normal sinus rhythm with heart rate in the 60s to 80s with no ectopy or arrhythmia. Chest x-ray, portable, on 01/01/2021 shows mild COPD changes with additional mild prominence of the proximal aortic arch with no pulmonary infiltrates, pneumothorax, CHF, cardiomegaly, etc. Moderate scoliosis noted. CTA of the chest on 01/01/2021 shows no evidence of PE with stable 3 mm pulmonary nodule in the right middle lobe and otherwise evidence of COPD. CT of the head without contrast on 01/01/2021 shows no acute changes with coil noted in the posterior fossa for treated aneurysm. Mild ventriculomegaly and chronic microvascular disease. Lab Results - Last 24 hrs: Laboratory Results - last 24 hr 01/01/21 01/02/21 01/02/21 Range/Units 11:51 07:01 07:01 WBC 7.1 (4.0-10.2) K/uL RBC 3.79 (3.77-5.09) M/uL Hgb 11.6 L (11.7-15.5) g/dL Hct 34.5 (34.0-46.0) % MCV 91.0 (84.0-98.0) fL MCH 30.6 (28.2-33.3) pg MCHC 33.6 (31.7-36.0) g/dL RDW 13.2 (11.2-14.1) % Plt Count 312 D (150-350) K/uL Neut % (Auto) 63.0 (45.0-80.0) % Lymph % (Auto) 23.9 (10.0-50.0) % Burt % (Auto) 9.7 (2.0-14.0) % Eos % (Auto) 2.7 (0.0-5.0) % Baso % (Auto) 0.7 (0.0-2.0) % Neut # (Auto) 4.47 (1.40-7.00) K/uL Lymph # (Auto) 1.70 (0.50-3.50) K/uL Burt # (Auto) 0.69 (0.00-1.00) K/uL Eos # (Auto) 0.19 (0.00-0.50) K/uL Baso # (Auto) 0.05 (0.00-0.20) K/uL D-Dimer, Quantitative 440 H (0-400) ng/mL Sodium 142 (136-145) mmol/L Potassium 3.2 L (3.5-5.1) mmol/L Chloride 106 (98-107) mmol/L Carbon Dioxide 27.4 (21.0-32.0) mmol/L BUN 15 (7-18) mg/dL Creatinine 0.66 (0.51-1.17) mg/dL Est Cr Clr Drug Dosing 80.23 mL/min Estimated GFR (MDRD) > 60 mL/min Glucose 138 H (70-99) mg/dL Calcium 8.8 (8.5-10.1) mg/dL Magnesium (1.8-2.4) mg/dL Total Bilirubin (0.2-1.0) mg/dL AST (15-37) U/L ALT (12-78) U/L Alkaline Phosphatase (46-116) IU/L Creatine Kinase 339 H (26-308) U/L Creatine Kinase Index 1.6 (0.0-2.5) % CK-MB (CK-2) 5.30 H* (0.00-3.60) ng/mL Troponin I 0.000 (0.000-0.056) ng/mL Total Protein (6.4-8.2) g/dL Albumin (3.4-5.0) g/dL 01/02/21 01/02/21 Range/Units 07:01 07:01 WBC (4.0-10.2) K/uL RBC (3.77-5.09) M/uL Hgb (11.7-15.5) g/dL Hct (34.0-46.0) % MCV (84.0-98.0) fL MCH (28.2-33.3) pg MCHC (31.7-36.0) g/dL RDW (11.2-14.1) % Plt Count (150-350) K/uL Neut % (Auto) (45.0-80.0) % Lymph % (Auto) (10.0-50.0) % Burt % (Auto) (2.0-14.0) % Eos % (Auto) (0.0-5.0) % Baso % (Auto) (0.0-2.0) % Neut # (Auto) (1.40-7.00) K/uL Lymph # (Auto) (0.50-3.50) K/uL Burt # (Auto) (0.00-1.00) K/uL Eos # (Auto) (0.00-0.50) K/uL Baso # (Auto) (0.00-0.20) K/uL D-Dimer, Quantitative (0-400) ng/mL Sodium 146 H (136-145) mmol/L Potassium 3.2 L (3.5-5.1) mmol/L Chloride 111 H (98-107) mmol/L Carbon Dioxide 28.1 (21.0-32.0) mmol/L BUN 9 (7-18) mg/dL Creatinine 0.59 (0.51-1.17) mg/dL Est Cr Clr Drug Dosing 89.75 mL/min Estimated GFR (MDRD) > 60 mL/min Glucose 98 (70-99) mg/dL Calcium 8.0 L (8.5-10.1) mg/dL Magnesium 1.7 L (1.8-2.4) mg/dL Total Bilirubin 0.3 (0.2-1.0) mg/dL AST 22 (15-37) U/L ALT 27 (12-78) U/L Alkaline Phosphatase 78 (46-116) IU/L Creatine Kinase 204 (26-308) U/L Creatine Kinase Index 1.3 (0.0-2.5) % CK-MB (CK-2) 2.60 (0.00-3.60) ng/mL Troponin I 0.000 (0.000-0.056) ng/mL Total Protein 6.3 L (6.4-8.2) g/dL Albumin 3.3 L (3.4-5.0) g/dL Laboratory Tests 01/01/21 01/01/21 01/01/21 Range/Units 00:45 00:45 00:45 WBC 11.9 H (4.0-10.2) K/uL RBC 4.14 (3.77-5.09) M/uL Hgb 12.7 (11.7-15.5) g/dL Hct 36.9 (34.0-46.0) % MCV 89.1 (84.0-98.0) fL MCH 30.7 (28.2-33.3) pg MCHC 34.4 (31.7-36.0) g/dL RDW 12.9 (11.2-14.1) % Plt Count 396 H (150-350) K/uL Neut % (Auto) 74.8 (45.0-80.0) % Lymph % (Auto) 15.9 (10.0-50.0) % Burt % (Auto) 7.5 (2.0-14.0) % Eos % (Auto) 1.2 (0.0-5.0) % Baso % (Auto) 0.6 (0.0-2.0) % Neut # (Auto) 8.86 H (1.40-7.00) K/uL Lymph # (Auto) 1.89 (0.50-3.50) K/uL Burt # (Auto) 0.89 (0.00-1.00) K/uL Eos # (Auto) 0.14 (0.00-0.50) K/uL Baso # (Auto) 0.07 (0.00-0.20) K/uL PT 9.8 (9.5-12.0) SEC INR 1.0 APTT 24.7 (24.5-32.8) SEC D-Dimer, Quantitative 810 H (0-400) ng/mL Sodium (136-145) mmol/L Potassium (3.5-5.1) mmol/L Chloride (98-107) mmol/L Carbon Dioxide (21.0-32.0) mmol/L BUN (7-18) mg/dL Creatinine (0.51-1.17) mg/dL Est Cr Clr Drug Dosing mL/min Estimated GFR (MDRD) mL/min Glucose (70-99) mg/dL Hemoglobin A1c (4.3-5.7) % Lactic Acid (0.4-2.0) mmol/L Uric Acid (2.6-7.2) mg/dL Calcium (8.5-10.1) mg/dL Magnesium (1.8-2.4) mg/dL Total Bilirubin (0.2-1.0) mg/dL AST (15-37) U/L ALT (12-78) U/L Alkaline Phosphatase (46-116) IU/L Creatine Kinase (26-308) U/L Creatine Kinase Index (0.0-2.5) % CK-MB (CK-2) (0.00-3.60) ng/mL Troponin I (0.000-0.056) ng/mL NT-Pro-B Natriuret Pep (0-125) pg/mL Total Protein (6.4-8.2) g/dL Albumin (3.4-5.0) g/dL Triglycerides (30-150) mg/dL Cholesterol (100-200) mg/dL LDL Cholesterol, Calc (0-100) mg/dL HDL Cholesterol (40-60) mg/dL TSH, Ultra Sensitive (0.358-3.740) mIU/mL SARS-CoV-2 RNA ([facility]) (NEGATIVE) 01/01/21 01/01/21 01/01/21 Range/Units 00:45 00:45 01:05 WBC (4.0-10.2) K/uL RBC (3.77-5.09) M/uL Hgb (11.7-15.5) g/dL Hct (34.0-46.0) % MCV (84.0-98.0) fL MCH (28.2-33.3) pg MCHC (31.7-36.0) g/dL RDW (11.2-14.1) % Plt Count (150-350) K/uL Neut % (Auto) (45.0-80.0) % Lymph % (Auto) (10.0-50.0) % Burt % (Auto) (2.0-14.0) % Eos % (Auto) (0.0-5.0) % Baso % (Auto) (0.0-2.0) % Neut # (Auto) (1.40-7.00) K/uL Lymph # (Auto) (0.50-3.50) K/uL Burt # (Auto) (0.00-1.00) K/uL Eos # (Auto) (0.00-0.50) K/uL Baso # (Auto) (0.00-0.20) K/uL PT (9.5-12.0) SEC INR APTT (24.5-32.8) SEC D-Dimer, Quantitative (0-400) ng/mL Sodium 141 (136-145) mmol/L Potassium 2.4 L* (3.5-5.1) mmol/L Chloride 102 (98-107) mmol/L Carbon Dioxide 27.0 (21.0-32.0) mmol/L BUN 21 H (7-18) mg/dL Creatinine 0.86 (0.51-1.17) mg/dL Est Cr Clr Drug Dosing 61.57 mL/min Estimated GFR (MDRD) > 60 mL/min Glucose 110 H (70-99) mg/dL Hemoglobin A1c (4.3-5.7) % Lactic Acid 0.7 (0.4-2.0) mmol/L Uric Acid 7.3 H (2.6-7.2) mg/dL Calcium 10.1 (8.5-10.1) mg/dL Magnesium 1.6 L (1.8-2.4) mg/dL Total Bilirubin 0.4 (0.2-1.0) mg/dL AST 29 (15-37) U/L ALT 33 (12-78) U/L Alkaline Phosphatase 94 (46-116) IU/L Creatine Kinase 474 H (26-308) U/L Creatine Kinase Index 1.5 (0.0-2.5) % CK-MB (CK-2) 7.00 H* (0.00-3.60) ng/mL Troponin I 0.000 (0.000-0.056) ng/mL NT-Pro-B Natriuret Pep 108 (0-125) pg/mL Total Protein 7.5 (6.4-8.2) g/dL Albumin 4.1 (3.4-5.0) g/dL Triglycerides (30-150) mg/dL Cholesterol (100-200) mg/dL LDL Cholesterol, Calc (0-100) mg/dL HDL Cholesterol (40-60) mg/dL TSH, Ultra Sensitive 1.069 (0.358-3.740) mIU/mL SARS-CoV-2 RNA ([facility]) Negative (NEGATIVE) 01/01/21 01/01/21 01/01/21 Range/Units 06:25 06:25 11:51 WBC (4.0-10.2) K/uL RBC (3.77-5.09) M/uL Hgb (11.7-15.5) g/dL Hct (34.0-46.0) % MCV (84.0-98.0) fL MCH (28.2-33.3) pg MCHC (31.7-36.0) g/dL RDW (11.2-14.1) % Plt Count (150-350) K/uL Neut % (Auto) (45.0-80.0) % Lymph % (Auto) (10.0-50.0) % Burt % (Auto) (2.0-14.0) % Eos % (Auto) (0.0-5.0) % Baso % (Auto) (0.0-2.0) % Neut # (Auto) (1.40-7.00) K/uL Lymph # (Auto) (0.50-3.50) K/uL Burt # (Auto) (0.00-1.00) K/uL Eos # (Auto) (0.00-0.50) K/uL Baso # (Auto) (0.00-0.20) K/uL PT (9.5-12.0) SEC INR APTT (24.5-32.8) SEC D-Dimer, Quantitative (0-400) ng/mL Sodium 142 (136-145) mmol/L Potassium 3.2 L (3.5-5.1) mmol/L Chloride 106 (98-107) mmol/L Carbon Dioxide 27.4 (21.0-32.0) mmol/L BUN 15 (7-18) mg/dL Creatinine 0.66 (0.51-1.17) mg/dL Est Cr Clr Drug Dosing 80.23 mL/min Estimated GFR (MDRD) > 60 mL/min Glucose 138 H (70-99) mg/dL Hemoglobin A1c 5.9 H (4.3-5.7) % Lactic Acid (0.4-2.0) mmol/L Uric Acid (2.6-7.2) mg/dL Calcium 8.8 (8.5-10.1) mg/dL Magnesium (1.8-2.4) mg/dL Total Bilirubin (0.2-1.0) mg/dL AST (15-37) U/L ALT (12-78) U/L Alkaline Phosphatase (46-116) IU/L Creatine Kinase 372 H 339 H (26-308) U/L Creatine Kinase Index 1.6 1.6 (0.0-2.5) % CK-MB (CK-2) 5.80 H* 5.30 H* (0.00-3.60) ng/mL Troponin I 0.001 0.000 (0.000-0.056) ng/mL NT-Pro-B Natriuret Pep (0-125) pg/mL Total Protein (6.4-8.2) g/dL Albumin (3.4-5.0) g/dL Triglycerides 152 H (30-150) mg/dL Cholesterol 173 (100-200) mg/dL LDL Cholesterol, Calc 95 (0-100) mg/dL HDL Cholesterol 48 (40-60) mg/dL TSH, Ultra Sensitive (0.358-3.740) mIU/mL SARS-CoV-2 RNA ([facility]) (NEGATIVE) 01/02/21 01/02/21 01/02/21 Range/Units 07:01 07:01 07:01 WBC 7.1 (4.0-10.2) K/uL RBC 3.79 (3.77-5.09) M/uL Hgb 11.6 L (11.7-15.5) g/dL Hct 34.5 (34.0-46.0) % MCV 91.0 (84.0-98.0) fL MCH 30.6 (28.2-33.3) pg MCHC 33.6 (31.7-36.0) g/dL RDW 13.2 (11.2-14.1) % Plt Count 312 D (150-350) K/uL Neut % (Auto) 63.0 (45.0-80.0) % Lymph % (Auto) 23.9 (10.0-50.0) % Burt % (Auto) 9.7 (2.0-14.0) % Eos % (Auto) 2.7 (0.0-5.0) % Baso % (Auto) 0.7 (0.0-2.0) % Neut # (Auto) 4.47 (1.40-7.00) K/uL Lymph # (Auto) 1.70 (0.50-3.50) K/uL Burt # (Auto) 0.69 (0.00-1.00) K/uL Eos # (Auto) 0.19 (0.00-0.50) K/uL Baso # (Auto) 0.05 (0.00-0.20) K/uL PT (9.5-12.0) SEC INR APTT (24.5-32.8) SEC D-Dimer, Quantitative 440 H (0-400) ng/mL Sodium 146 H (136-145) mmol/L Potassium 3.2 L (3.5-5.1) mmol/L Chloride 111 H (98-107) mmol/L Carbon Dioxide 28.1 (21.0-32.0) mmol/L BUN 9 (7-18) mg/dL Creatinine 0.59 (0.51-1.17) mg/dL Est Cr Clr Drug Dosing 89.75 mL/min Estimated GFR (MDRD) > 60 mL/min Glucose 98 (70-99) mg/dL Hemoglobin A1c (4.3-5.7) % Lactic Acid (0.4-2.0) mmol/L Uric Acid (2.6-7.2) mg/dL Calcium 8.0 L (8.5-10.1) mg/dL Magnesium (1.8-2.4) mg/dL Total Bilirubin 0.3 (0.2-1.0) mg/dL AST 22 (15-37) U/L ALT 27 (12-78) U/L Alkaline Phosphatase 78 (46-116) IU/L Creatine Kinase 204 (26-308) U/L Creatine Kinase Index 1.3 (0.0-2.5) % CK-MB (CK-2) 2.60 (0.00-3.60) ng/mL Troponin I 0.000 (0.000-0.056) ng/mL NT-Pro-B Natriuret Pep (0-125) pg/mL Total Protein 6.3 L (6.4-8.2) g/dL Albumin 3.3 L (3.4-5.0) g/dL Triglycerides (30-150) mg/dL Cholesterol (100-200) mg/dL LDL Cholesterol, Calc (0-100) mg/dL HDL Cholesterol (40-60) mg/dL TSH, Ultra Sensitive (0.358-3.740) mIU/mL SARS-CoV-2 RNA ([facility]) (NEGATIVE) 01/02/21 Range/Units 07:01 WBC (4.0-10.2) K/uL RBC (3.77-5.09) M/uL Hgb (11.7-15.5) g/dL Hct (34.0-46.0) % MCV (84.0-98.0) fL MCH (28.2-33.3) pg MCHC (31.7-36.0) g/dL RDW (11.2-14.1) % Plt Count (150-350) K/uL Neut % (Auto) (45.0-80.0) % Lymph % (Auto) (10.0-50.0) % Burt % (Auto) (2.0-14.0) % Eos % (Auto) (0.0-5.0) % Baso % (Auto) (0.0-2.0) % Neut # (Auto) (1.40-7.00) K/uL Lymph # (Auto) (0.50-3.50) K/uL Burt # (Auto) (0.00-1.00) K/uL Eos # (Auto) (0.00-0.50) K/uL Baso # (Auto) (0.00-0.20) K/uL PT (9.5-12.0) SEC INR APTT (24.5-32.8) SEC D-Dimer, Quantitative (0-400) ng/mL Sodium (136-145) mmol/L Potassium (3.5-5.1) mmol/L Chloride (98-107) mmol/L Carbon Dioxide (21.0-32.0) mmol/L BUN (7-18) mg/dL Creatinine (0.51-1.17) mg/dL Est Cr Clr Drug Dosing mL/min Estimated GFR (MDRD) mL/min Glucose (70-99) mg/dL Hemoglobin A1c (4.3-5.7) % Lactic Acid (0.4-2.0) mmol/L Uric Acid (2.6-7.2) mg/dL Calcium (8.5-10.1) mg/dL Magnesium 1.7 L (1.8-2.4) mg/dL Total Bilirubin (0.2-1.0) mg/dL AST (15-37) U/L ALT (12-78) U/L Alkaline Phosphatase (46-116) IU/L Creatine Kinase (26-308) U/L Creatine Kinase Index (0.0-2.5) % CK-MB (CK-2) (0.00-3.60) ng/mL Troponin I (0.000-0.056) ng/mL NT-Pro-B Natriuret Pep (0-125) pg/mL Total Protein (6.4-8.2) g/dL Albumin (3.4-5.0) g/dL Triglycerides (30-150) mg/dL Cholesterol (100-200) mg/dL LDL Cholesterol, Calc (0-100) mg/dL HDL Cholesterol (40-60) mg/dL TSH, Ultra Sensitive (0.358-3.740) mIU/mL SARS-CoV-2 RNA ([facility]) (NEGATIVE) NANI Results - Last 24 hrs: Microbiology 01/01/21 09:15 Stool Occult Blood (NANI) - Final Stool / Feces NEGATIVE OCCULT BLOOD REFERENCE RANGE: NEGATIVE Med Orders - Current: Current Medications Acetaminophen (Acetaminophen 325 Mg Tab) 650 mg PO Q4H PRN PRN Reason: Pain Amlodipine Besylate (Amlodipine 5 Mg Tab) 5 mg PO DAILY [facility] Last Admin: 01/02/21 08:17 Dose: 5 mg Documented by: Bupropion HCl (Bupropion 150 Mg Tab.Er) 450 mg PO DAILY [facility] Last Admin: 01/02/21 08:16 Dose: 450 mg Documented by: Buspirone HCl (Buspirone 15 Mg Tab) 30 mg PO DAILY [facility] Last Admin: 01/02/21 08:17 Dose: 30 mg Documented by: Coenzyme Q10 (Ubidecarenone 100 Mg Cap) 100 mg PO TID [facility] Last Admin: 01/02/21 08:17 Dose: 100 mg Documented by: Lactated Ringer's (Ringers, Lactated) 1,000 mls @ 100 mls/hr IV ASDIRECTED [facility] Last Admin: 01/02/21 06:16 Dose: 100 mls/hr Documented by: Sodium Chloride (Normal Saline) 1,000 mls @ 50 mls/hr IV ASDIRECTED [facility] Last Admin: 01/01/21 02:10 Dose: 50 mls/hr Documented by: Loperamide HCl (Loperamide 2 Mg Tab) 2 mg PO Q6H PRN PRN Reason: Diarrhea Miscellaneous Information (Remove Patch Nicotine Patch) 1 ea TRDERM DAILY [facility] Last Admin: 01/02/21 08:18 Dose: 1 ea Documented by: Nicotine (Nicotine 21 Mg/24 Hr Patch) 21 mg TRDERM DAILY [facility] Last Admin: 01/02/21 08:18 Dose: 21 mg Documented by: Potassium Chloride (Potassium Chloride 20 Meq Tab.Er) 20 meq PO TID [facility] Last Admin: 01/02/21 08:17 Dose: 20 meq Documented by: Sodium Chloride (Sodium Chloride 0.9% 10 Ml Syringe) 10 ml FLUSH ASDIRECTED PRN PRN Reason: Keep Vein Open Last Admin: 01/01/21 00:56 Dose: 10 ml Documented by: Sodium Chloride (Sodium Chloride 0.9% 10 Ml Syringe) 10 ml FLUSH ASDIRECTED PRN PRN Reason: Keep Vein Open Sodium Chloride (Sodium Chloride 0.9% 10 Ml Syringe) 10 ml FLUSH Q12HR PRN PRN Reason: Keep Vein Open Temazepam (Temazepam 15 Mg Cap) 15 mg PO BEDTIME PRN PRN Reason: Insomnia Venlafaxine HCl (Venlafaxine 75 Mg Cap.Er) 75 mg PO DAILY [facility] Last Admin: 01/02/21 08:17 Dose: 75 mg Documented by: Venlafaxine HCl (Venlafaxine 25 Mg Tab) 100 mg PO DAILY [facility] Last Admin: 01/02/21 08:13 Dose: 100 mg Documented by: Discontinued Medications Atorvastatin Calcium (Atorvastatin 10 Mg Tab) 10 mg PO DAILY [facility] Famotidine (Famotidine 20 Mg/2 Ml Sdv) 40 mg IVPUSH ONETIME ONE Stop: 01/01/21 00:48 Last Admin: 01/01/21 00:56 Dose: 40 mg Documented by: Potassium Chloride 10 meq/ (Premix) 50 mls @ 50 mls/hr IV ONETIME ONE Stop: 01/01/21 02:32 Last Admin: 01/01/21 02:04 Dose: 50 mls/hr Documented by: Lactated Ringer's (Ringers, Lactated) 1,000 mls @ 999 mls/hr IV .BOLUS ONE Stop: 01/01/21 03:09 Last Admin: 01/01/21 02:29 Dose: 999 mls/hr Documented by: Magnesium Sulfate (Magnesium Sulfate In Water 4 Gm/100 Ml) 4 gm in 100 mls @ 25 mls/hr IV ONETIME ONE Stop: 01/01/21 06:59 Last Admin: 01/01/21 03:17 Dose: 25 mls/hr Documented by: Potassium Chloride 10 meq/ (Premix) 50 mls @ 50 mls/hr IV Q1H [place] Stop: 01/01/21 08:29 Last Admin: 01/01/21 08:20 Dose: 50 mls/hr Documented by: Iopamidol (Iopamidol 755 Mg/Ml 100 Ml Bottle) 100 ml IVPUSH ONETIME STA Stop: 01/01/21 08:08 Last Admin: 01/01/21 09:15 Dose: 100 ml Documented by: Iopamidol (Iopamidol 755 Mg/Ml 100 Ml Bottle) Confirm Administered Dose 100 ml .ROUTE .STK-MED ONE Stop: 01/01/21 08:22 Loperamide HCl (Loperamide 2 Mg Tab) 4 mg PO ONETIME ONE Stop: 01/01/21 13:21 Last Admin: 01/01/21 14:30 Dose: 4 mg Documented by: Magnesium Oxide (Magnesium Oxide 400 Mg Tab) 400 mg PO ONETIME ONE Stop: 01/01/21 02:10 Last Admin: 01/01/21 02:36 Dose: 400 mg Documented by: - Exam Quality Assessment: Reports: DVT Prophylaxis. Denies: Supplemental Oxygen, Central Line/PICC, Urine Catheter, Skin Breakdown, Restraints General: Reports: Alert, Oriented, Cooperative, No Acute Distress HEENT: Reports: Pupils Equal, Pupils Reactive, EOMI, Mucous Membr. Moist/[place], Other (Patient is wearing glasses). Denies: Scleral Icterus Neck: Reports: Supple, Trachea Midline, No JVD, No Thyromegaly, +2 Carotid Pulse wo Bruit. Denies: Thyromegaly Lungs: Reports: Clear to Auscultation, Normal Respiratory Effort. Denies: Rub Cardiovascular: Reports: Regular Rate, Regular Rhythm, No Murmurs. Denies: Gallops, Rubs GI/Abdominal Exam: Normal Bowel Sounds, Soft, Non-Tender, No Organomegaly, No Distention, No Abnormal Bruit, No Mass, Other (Obese). No: Guarding (Female) Exam: Deferred Rectal (Female) Exam: Deferred Back Exam: Reports: Full Range of Motion, Other (Moderate scoliosis). Denies: CVA Tenderness (L), CVA Tenderness (R), Muscle Spasm, Paraspinal Tenderness, Vertebral Tenderness Extremities: Normal Inspection, Normal Range of Motion, Non-Tender, No Pedal Edema, Normal Capillary Refill. No: Jeanie's Sign Skin: Reports: Warm, Dry, Intact. Denies: Ecchymosis Neurological: Reports: No New Focal Deficit Psy/Mental Status: Reports: Alert, Normal Affect, Normal Mood. Denies: Agitated, Hallucinations, Withdrawal Symptoms #1 Interpretation EKG Date: 01/02/21 Time: 08:24 Rhythm: NSR Rate (Beats/Min): 77 [place]: Normal P-Wave: Present QRS: Normal (0.10 seconds representing repolarization changes) ST-T: Normal QT: Normal IL/PQ Interval: 0.16 seconds with new borderline pulmonary hypertension by EKG Comparison: Change From Previous EKG (As above since 01/01/2021) EKG Interpretation Comments: 1. No acute ischemic changes 2. Pulmonary hypertension by EKG
[2021-01-02] MEDS ORDERED: Magnesium Oxide 400 MG Tab PO ONE (09:03)
== END 2021-01-02 10:45 | disposition home or self-care (01) ==
LOC: LL.ED 00:15 → LL.MS 01:35
PROVIDERS: ADMIT Family Medicine; ATTEND Family Medicine
DX: R42 Dizziness and giddiness (principal); R74.8 Abnormal levels of other serum enzymes; I25.10 Atherosclerotic heart disease of native coronary artery without angina pectoris; E78.00 Pure hypercholesterolemia, unspecified; I10 Essential (primary) hypertension; J44.9 Chronic obstructive pulmonary disease, unspecified; E66.9 Obesity, unspecified; F17.210 Nicotine dependence, cigarettes, uncomplicated; R79.89 Other specified abnormal findings of blood chemistry; E79.0 Hyperuricemia without signs of inflammatory arthritis and tophaceous disease; E87.6 Hypokalemia; E83.42 Hypomagnesemia; K21.9 Gastro-esophageal reflux disease without esophagitis; D50.9 Iron deficiency anemia, unspecified; Z98.890 Other specified postprocedural states; Z88.2 Allergy status to sulfonamides; Z79.899 Other long term (current) drug therapy; Z68.24 Body mass index [BMI] 24.0-24.9, adult
CPT/HCPCS: 36415; 70450; 71045; 71275; 80048; 80053; 80061; 82272; 82550; 82553; 83036; 83605; 83735; 83880; 84443; 84484; 84550; 85025; 85379; 85610; 85730; 87804; 93005; 96365; 96368; 96374; 96375; 99285-25; A9270-GY; G0378; J3475; J3480; J3490; J7030; J7120; Q9967; U0002

== ENCOUNTER 2022-02-18 15:55 | Emergency (ER) | payer BC, OTHER | END 2022-02-18 17:25 | disposition home or self-care (01) | LOC: LL.ED 15:55 | DX: R50.9 Fever, unspecified (principal); E78.00 Pure hypercholesterolemia, unspecified; I10 Essential (primary) hypertension; J44.9 Chronic obstructive pulmonary disease, unspecified; E66.9 Obesity, unspecified; Z68.35 Body mass index [BMI] 35.0-35.9, adult; Z88.2 Allergy status to sulfonamides; Z79.899 Other long term (current) drug therapy | CPT/HCPCS: 36415; 81001; 85025; 99283; 99284 ==

== ENCOUNTER 2022-04-23 14:16 | Emergency (ER) | payer BC ==
[2022-04-23 15:21] LABS: RESPIRATORY SYNCYTIAL VIR NAA NEGATIVE (NEGATIVE)
[2022-04-23] MEDS ORDERED: Nirmatrelvir/Ritonavir 300 MG/100 MG Dose Pack PO SCH (15:30)
[2022-04-23 16:50] LABS: CORONAVIRUS COVID-19 NAA POSITIVE (NEGATIVE)
== END 2022-04-23 17:10 | disposition home or self-care (01) ==
LOC: LL.ED 14:16
DX: U07.1 COVID-19 (principal); I25.10 Atherosclerotic heart disease of native coronary artery without angina pectoris; E78.00 Pure hypercholesterolemia, unspecified; I10 Essential (primary) hypertension; J44.9 Chronic obstructive pulmonary disease, unspecified; F17.210 Nicotine dependence, cigarettes, uncomplicated; E66.9 Obesity, unspecified; Z88.2 Allergy status to sulfonamides; Z79.899 Other long term (current) drug therapy; Z79.82 Long term (current) use of aspirin; Z68.21 Body mass index [BMI] 21.0-21.9, adult
CPT/HCPCS: 0241U; 99283

== ENCOUNTER 2022-06-30 18:47 | Emergency (ER) | payer BC ==
[2022-06-30 19:49] LABS: CORONAVIRUS COVID-19 NAA NEGATIVE (NEGATIVE); RESPIRATORY SYNCYTIAL VIR NAA NEGATIVE (NEGATIVE)
== END 2022-06-30 19:55 | disposition home or self-care (01) ==
LOC: LL.ED 18:47
DX: R06.02 Shortness of breath (principal); I25.10 Atherosclerotic heart disease of native coronary artery without angina pectoris; J44.9 Chronic obstructive pulmonary disease, unspecified; I10 Essential (primary) hypertension; E78.00 Pure hypercholesterolemia, unspecified; F17.210 Nicotine dependence, cigarettes, uncomplicated; E66.9 Obesity, unspecified; Z88.2 Allergy status to sulfonamides; Z79.899 Other long term (current) drug therapy; Z20.822 Contact with and (suspected) exposure to COVID-19
CPT/HCPCS: 0241U; 36415; 85025; 99283; 99284

== ENCOUNTER 2022-07-16 18:08 | Emergency (ER) | payer BC ==
[2022-07-16] MEDS ORDERED: diphenhydrAMINE 50 MG/ML SDV IVPUSH ONE (18:33)
[2022-07-16] MEDS ORDERED: Sodium Chloride 0.9% 10 ML Syringe FLUSH PRN (18:33)
[2022-07-16] MEDS ORDERED: hydrALAZINE 20 MG/ML SDV IVPUSH ONE (18:34)
[2022-07-16] MEDS ORDERED: Metoclopramide 10 MG/2 ML SDV IVPUSH ONE (18:34)
[2022-07-16] MEDS ORDERED: Ketorolac 30 MG/ML SDV IM ONE (18:34)
[2022-07-16 19:32] LABS: CORONAVIRUS COVID-19 NAA NEGATIVE (NEGATIVE); RESPIRATORY SYNCYTIAL VIR NAA NEGATIVE (NEGATIVE)
== END 2022-07-16 19:39 | disposition home or self-care (01) ==
LOC: LL.ED 18:08
DX: G43.009 Migraine without aura, not intractable, without status migrainosus (principal); I16.0 Hypertensive urgency; I25.10 Atherosclerotic heart disease of native coronary artery without angina pectoris; E78.00 Pure hypercholesterolemia, unspecified; J44.9 Chronic obstructive pulmonary disease, unspecified; K21.9 Gastro-esophageal reflux disease without esophagitis; M19.90 Unspecified osteoarthritis, unspecified site; E66.9 Obesity, unspecified; Z68.23 Body mass index [BMI] 23.0-23.9, adult; Z72.0 Tobacco use; Z88.2 Allergy status to sulfonamides; Z79.82 Long term (current) use of aspirin; Z79.899 Other long term (current) drug therapy; Z20.822 Contact with and (suspected) exposure to COVID-19
CPT/HCPCS: 0241U; 96372; 96374; 96375; 99284; J0360; J1200; J1885; J2765

== ENCOUNTER 2022-07-17 04:20 | Emergency (ER) | payer BC ==
[2022-07-17] MEDS ORDERED: Ondansetron 4 MG/2 ML SDV IVPUSH ONE ×2 (16:23→23:32)
[2022-07-17] MEDS: Ondansetron 4 MG/2 ML SDV ONE ×2 (16:24→16:53)
[2022-07-17] MEDS ORDERED: Sodium Chloride 0.9% 10 ML Syringe FLUSH PRN (16:27)
[2022-07-17] MEDS ORDERED: Lactated Ringers 1,000 ML IV ONE (16:27)
[2022-07-17 17:14] LABS: ANION GAP 17.7 meq/L (7-15)
[2022-07-17] MEDS ORDERED: Magnesium Sulfate/Water 2 GM in Premix Bag 1 BAG IV ONE (17:19)
[2022-07-17] MEDS: Potassium Chloride Riders 10 MEQ in Premix Bag 1 BAG IV SCH ×4 (17:54→22:00)
[2022-07-17] MEDS ORDERED: Sodium Chloride 0.9% 1,000 ML IV SCH (18:00)
[2022-07-17] MEDS ORDERED: Dexamethasone 10 MG/ML SDV IVPUSH ONE (19:28)
[2022-07-17] MEDS ORDERED: Ketorolac 30 MG/ML SDV IM ONE (20:40)
[2022-07-17] MEDS ORDERED: Metoclopramide 10 MG/2 ML SDV IVPUSH ONE (20:41)
[2022-07-17] MEDS ORDERED: diphenhydrAMINE 50 MG/ML SDV IVPUSH ONE (20:41)
== END 2022-07-18 00:03 | disposition home or self-care (01) ==
LOC: LL.ED 15:59
DX: G43.019 Migraine without aura, intractable, without status migrainosus (principal); E87.6 Hypokalemia; E83.42 Hypomagnesemia; I25.10 Atherosclerotic heart disease of native coronary artery without angina pectoris; E78.00 Pure hypercholesterolemia, unspecified; I10 Essential (primary) hypertension; J44.9 Chronic obstructive pulmonary disease, unspecified; K21.9 Gastro-esophageal reflux disease without esophagitis; M19.90 Unspecified osteoarthritis, unspecified site; D64.9 Anemia, unspecified; E66.9 Obesity, unspecified; Z68.23 Body mass index [BMI] 23.0-23.9, adult; Z72.0 Tobacco use; Z88.2 Allergy status to sulfonamides; Z79.82 Long term (current) use of aspirin; Z79.899 Other long term (current) drug therapy
CPT/HCPCS: 36415; 70450; 80053; 81001; 83605; 83735; 84132; 85025; 86140; 96361; 96365; 96366; 96368; 96372; 96375; 96376; 99285-25; J1100; J1200; J1885; J2405; J2765; J3475; J3480; J7030; J7120